=== PATIENT | female | born 1990 | race Caucasian/White ===

== ENCOUNTER 2021-12-06 09:23 | Emergency (ER) | payer SELFPAY ==
[2021-12-06 10:23] LABS: Urine Blood Trace-intact (Negative); Urine Glucose Negative (Negative); Urine Protein Negative (Negative)
[2021-12-06 10:28] LABS: Absolute Lymphocytes (CBC) 1.9 K/uL (0.7-4.9); Hematocrit 37.5 % (36.0-45.0); Lymphocytes % 22.4 % (15.3-44.8); MCV 81.8 fL (80-100); MPV 8.4 fL (7.6-11.3); RBC Red Blood Cell Count 4.58 M/uL (3.86-4.86)
[2021-12-06] MEDS ORDERED: NA CHLORIDE 0.9% 1,000 ML ONE (10:35)
[2021-12-06] MEDS ORDERED: ONDANSETRON 4 MG/2 ML VIAL ONE (10:35)
[2021-12-06] MEDS ORDERED: DICYCLOMINE HCL 20 MG/2 ML AMP IM ONE (10:35)
[2021-12-06 10:44] LABS: Albumin 4.1 g/dL (3.4-5.0); Bilirubin Total 0.3 mg/dL (0.2-1.0); Potassium 4.3 mmol/L (3.5-5.1); Protein, Total 7.7 g/dL (6.4-8.2)
--- NOTE | 2021-12-06 11:27 | RAD REPORT ---
EXAM DESCRIPTION: CT - Abdomen Pelvis W Contrast - 12/06/2021 10:59 am CLINICAL HISTORY: abdominal pain, umbilical area COMPARISON: <Comparisons> TECHNIQUE: Biphasic, helical CT imaging of the abdomen and pelvis was performed following 100 ml non -ionic IV contrast. No oral contrast was not administered. All CT scans are performed using dose optimization technique as appropriate and may include automated exposure control or mA/KV adjustment according to patient size. FINDINGS: No suspicious findings in the lung bases. A 13 millimeter cyst is present in the subcapsular dome of the right lobe. On arterial phase imaging there are numerous oval and rounded enhancing lesions scattered throughout the right lobe up to 19 mm in size. In the midline left lobe there is a 3.7 centimeter diameter mass showing prominent enhancem ent. The enhancement is slightly more heterogeneous and there is some central hypoattenuation. Portal phase imaging shows all of the right lobe liver lesions to be isodense to the parenchyma. There is a small remnant of hypoattenuation for the left lobe lesion with the majority of the lesion also isode nse to the surrounding parenchyma. Focal nodular hyperplasia and hepatic adenomas can have this appea cassie. Atypical or flash hemangiomas would be possible as well. There is no evidence for acute or chr onic hemorrhage on CT imaging. No portal vein abnormality. Pancreas and spleen show no suspicious findings. Gallbladder and biliary tree are also without suspic ious finding. Symmetric renal function is seen with no hydronephrosis or suspicious renal mass. No pyelonephritis o r acute parenchymal process. No bladder abnormalities. No adrenal abnormalities. No uterine or left o varian abnormality. Right ovary probably contains a 2 centimeter cyst. Cyst rupture or hemorrhage is not identified. No dilated bowel loops or bowel wall thickening. Appendix is normal. No free air, free fluid or infla mmatory stranding. No hernia, mass or bulky lymphadenopathy. No suspicious bony findings. IMPRESSION: CT abdomen and pelvis imaging shows no abnormality that would explain acute abdominal pa in. Nonspecific enteritis would still be possible. There is no appendicitis. Patient has multiple hepatic lesions the largest 3.7 cm in the left lobe. Imaging characteristics ov erlap between hepatic adenomas and focal nodular hyperplasia. Atypical or flash hemangiomas would be possible. No hemorrhage or acute findings are evident for any of the liver lesions. Follow-up outpatient contra st MRI imaging could be utilized to try to distinguish or further characterize the likely benign live r lesions.
--- NOTE | 2021-12-06 12:05 | ER ---
Nurse's Notes [facility] Name: Lara Rogers Age: 31 yrs Sex: Female : 1990 Arrival Date: 12/06/2021 Time: 09:43 Bed Treatment Private MD: Diagnosis: Diarrhea, unspecified;Abdominal pain, unspecified Presentation: 12/06 11:05 Chief complaint: Patient states: stomach pain umbilicus region. Coronavirus screen: kr3 Vaccine status: Patient reports receiving the 2nd dose of the covid vaccine. Client denies travel out of the [place] in the last 14 days. Ebola Screen: Patient denies travel to an Ebola-affected area in the 21 days before illness onset. 11:05 Method Of Arrival: Ambulatory kr3 12:16 Initial Sepsis Screen: Does the patient meet any 2 criteria? No. Patient's initial ll1 sepsis screen is negative. Does the patient have a suspected source of infection? Yes: Acute abdominal pain. Risk Assessment: Do you want to hurt yourself or someone else? Patient reports no desire to harm self or others. 12:16 Acuity: ELOY 3 ll1 12:17 Onset of symptoms was December 06, 2021. ll1 Triage Assessment: 11:14 General: Appears distressed, uncomfortable, Behavior is calm, cooperative. Pain: kr3 Complains of pain in abdomen Pain currently is 4 out of 10 on a pain scale. SHORE HAND DREDGE OR BARGE: 12:16 LMP N/A - control method ll1 Historical: - Allergies: 11:14 No Known Allergies; kr3 - Immunization history:: Adult Immunizations up to date, Client reports receiving the 2nd dose of the Covid vaccine. - Social history:: Smoking status: Patient denies any tobacco usage or history of. Screenin:15 Abuse screen: Denies threats or abuse. Nutritional screening: No deficits noted. ll1 Tuberculosis screening: No symptoms or risk factors identified. Fall Risk Total Larsen Fall Scale indicates No Risk (0-24 pts). Assessment: 12:15 Reassessment: No changes from previously documented assessment. Patient and/or family ll1 updated on plan of care and expected duration. Pain level reassessed. Patient is alert, oriented x 3, equal unlabored respirations, skin warm/dry/pink. 12:16 GI: Bowel sounds present X 4 quads. Abd is soft and non tender X 4 quads. ll1 Vital Signs: 11:05 BP 114 / 69; Pulse 69; Resp 18; Temp 99.1; Pulse Ox 100% on R/A; kr3 ED Course: 09:43 Patient arrived in ED. kr3 09:44 Paulino Ames NP is PHCP. pm1 09:44 Omar Samayoa MD is Attending Physician. pm1 12:15 Treasure Isabel, RN is Primary Nurse. ll1 12:16 Triage completed. ll1 12:16 Arm band placed on. ll1 12:16 No provider procedures requiring assistance completed. IV discontinued, intact, ll1 bleeding controlled, No redness/swelling at site. Pressure dressing applied. 12:17 Patient has correct armband on for positive identification. Bed in low position. Call ll1 light in reach. Cardiac monitoring not applicable on this patient. Administered Medications: 10:29 Drug: NS 0.9% 1000 ml Route: IV; Rate: 1 bolus; Site: left antecubital; ll4 10:30 Drug: Zofran (Ondansetron) 4 mg Route: IVP; Site: left antecubital; ll4 10:30 Drug: Bentyl (dicyclomine) 20 mg Route: IM; Site: left deltoid; ll4 Medication: 12:17 VIS not applicable for this client. ll1 Outcome: 12:05 Discharge ordered by . pm1 12:16 Discharged to home ambulatory. ll1 12:16 Condition: stable 12:16 Discharge instructions given to patient, Instructed on discharge instructions, follow up and referral plans. medication usage, Demonstrated understanding of instructions, follow-up care, medications, Prescriptions given X 1. 12:17 Patient left the ED. ll1 Signatures: Paulino Ames NP OPHTHALMIC SURGICAL ASSISTANT pm1 Treasure Isabel, RN RN ll1 Genia Tate RN RN kr3 Candi Isabel, RN RN ll4 Corrections: (The following items were deleted from the chart) 11:14 11:14 Allergies: Aspirin; kr3 kr3
--- NOTE | 2021-12-06 12:05 | EDPHYS ---
Physician Documentation [facility] Name: Lara Rogers Age: 31 yrs Sex: Female : 1990 Arrival Date: 12/06/2021 Time: 09:43 Bed Treatment Private MD: ED Physician Omar Samayoa HPI: 12/06 09:53 This 31 yrs old Female presents to ER via Ambulatory with complaints of Abdominal Pain. pm1 09:53 The patient presents with abdominal pain. Onset: The symptoms/episode began/occurred pm1 this morning. The symptoms do not radiate. Associated signs and symptoms: Pertinent positives: diarrhea, nausea, Pertinent negatives: vomiting. The symptoms are described as crampy. Modifying factors: The symptoms are alleviated by nothing, the symptoms are aggravated by nothing. Severity of pain: in the emergency department the pain is actually worse. The patient has not experienced similar symptoms in the past. The patient has not recently seen a physician. Patient suspects she possibly may have food poisoning from chicken that was not cooked well last night. ORTHO NURSE: 12:16 LMP N/A - control method ll1 Historical: - Allergies: 11:14 No Known Allergies; kr3 - Immunization history:: Adult Immunizations up to date, Client reports receiving the 2nd dose of the Covid vaccine. - Social history:: Smoking status: Patient denies any tobacco usage or history of. ROS: 09:53 Constitutional: Negative for fever, chills, and weight loss, Cardiovascular: Negative pm1 for chest pain, palpitations, and edema, Respiratory: Negative for shortness of breath, cough, wheezing, and pleuritic chest pain. 09:53 Back: Negative for injury and pain, : Negative for injury, bleeding, discharge, and swelling, MS/Extremity: Negative for injury and deformity, Skin: Negative for injury, rash, and discoloration, Neuro: Negative for headache, weakness, numbness, tingling, and seizure. 09:53 Abdomen/GI: Positive for abdominal pain, nausea, diarrhea, Negative for vomiting. 09:53 All other systems are negative. Exam: 09:53 Constitutional: This is a well developed, well nourished patient who is awake, alert, pm1 and in no acute distress. Head/Face: Normocephalic, atraumatic. 09:53 Back: No spinal tenderness. No costovertebral tenderness. Full range of motion. Skin: Warm, dry with normal turgor. Normal color with no rashes, no lesions, and no evidence of cellulitis. MS/ Extremity: Pulses equal, no cyanosis. Neurovascular intact. Full, normal range of motion. 09:53 Eyes: Exam is negative for acute changes, Periorbital structures: appear normal, Extraocular movements: no acute changes, Conjunctiva: no acute changes. 09:53 ENT: Exam is negative for acute changes, Mouth: no acute changes, Lips: normal, moist, Oral mucosa: normal, pink and intact, moist. 09:53 Cardiovascular: Exam negative for acute changes, Rate: normal, Rhythm: regular, Pulses: no pulse deficits are appreciated. 09:53 Respiratory: Exam negative for acute changes, respiratory distress, shortness of breath. 09:53 Abdomen/GI: Inspection: abdomen appears normal, Bowel sounds: normal, Palpation: soft, in all quadrants, mild abdominal tenderness, in the umbilical area. 09:53 Neuro: Exam negative for acute changes, Orientation: is normal, Mentation: is normal, Motor: is normal, moves all fours. Vital Signs: 11:05 BP 114 / 69; Pulse 69; Resp 18; Temp 99.1; Pulse Ox 100% on R/A; kr3 MDM: 09:44 Patient medically screened. pm1 12:04 Data reviewed: vital signs. Data interpreted: Pulse oximetry: on room air is 100 %. pm1 Interpretation: normal. 12:04 Counseling: I had a detailed discussion with the patient and/or guardian regarding: the pm1 historical points, exam findings, and any diagnostic results supporting the discharge/admit diagnosis, lab results, radiology results, the need for outpatient follow up, to return to the emergency department if symptoms worsen or persist or if there are any questions or concerns that arise at home. 12:06 Special discussion: I discussed with the patient the need to follow-up with the pm1 PCP/specialist for the noted incidental finding on X-ray/CT scanning. hepatic lesions for further evaluation and evaluation by GI. 12/06 09:53 Order name: CBC with Diff; Complete Time: 10:31 pm1 12/06 09:53 Order name: CMP; Complete Time: 10:46 pm1 12/06 09:53 Order name: Lipase; Complete Time: 10:46 pm1 12/06 09:53 Order name: CT Abd/Pelvis - IV Contrast Only pm1 12/06 10:23 Order name: Urine Dipstick-Ancillary; Complete Time: 10:31 EDMS 12/06 10:24 Order name: Urine --Ancillary (enter results) em1 12/06 09:53 Order name: IV Saline Lock pm1 12/06 09:53 Order name: Labs collected and sent pm1 12/06 09:53 Order name: Urine Dipstick-Ancillary (obtain specimen) pm1 12/06 09:53 Order name: Urine Test (obtain specimen) pm1 12/06 11:28 Order name: CT; Complete Time: 11:34 EDMS Administered Medications: 10:29 Drug: NS 0.9% 1000 ml Route: IV; Rate: 1 bolus; Site: left antecubital; ll4 10:30 Drug: Zofran (Ondansetron) 4 mg Route: IVP; Site: left antecubital; ll4 10:30 Drug: Bentyl (dicyclomine) 20 mg Route: IM; Site: left deltoid; ll4 Disposition: 16:12 Co-signature as Attending Physician, Omar Samayoa MD. rn Disposition Summary: 12/06/21 12:05 Discharge Ordered Location: Home pm1 Problem: new pm1 Symptoms: have improved pm1 Condition: Stable pm1 Diagnosis - Diarrhea, unspecified pm1 - Abdominal pain, unspecified pm1 Followup: pm1 - With: Emergency Department - When: As needed - Reason: Worsening of condition Followup: pm1 - With: Private Physician - When: 2 - 3 days - Reason: Recheck today's complaints, Continuance of care, Re-evaluation by your physician Discharge Instructions: - Discharge Summary Sheet pm1 - Abdominal Pain, Adult pm1 - Food Choices to Help Relieve Diarrhea, Adult pm1 - Diarrhea, Adult pm1 - Food Poisoning pm1 - Viral Gastroenteritis, Adult pm1 Forms: - Medication Reconciliation Form pm1 - Thank You Letter pm1 - Antibiotic Education pm1 - Prescription Opioid Use pm1 Prescriptions: - dicyclomine 20 mg Oral Tablet - take 1 tablet by ORAL route every 6 hours As needed; 20 tablet; Refills: 0, pm1 Product Selection Permitted Signatures: Dispatcher [employer] EDMS Omar Samayoa MD MD rn Marinas, Patrick, NP [employer] pm1 Genia Tate, RN RN kr3 Candi Isabel RN RN ll4 Corrections: (The following items were deleted from the chart) :14 11:14 Allergies: Aspirin; kr3 kr3
[2021-12-06 13:01] VITALS: BP 114/69; TEMP 99.1; O2SAT 100
== END 2021-12-06 12:17 | disposition home or self-care (01) ==
LOC: ER 09:23
DX: R19.7 Diarrhea, unspecified (principal); R10.9 Unspecified abdominal pain
CPT/HCPCS: 36415; 74177; 80053; 81003; 81025; 83690; 85025; 96372; 96374; 99283; J0500; J2405; J7030; Q9967